=== PATIENT | male | born 2000 ===

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

== ENCOUNTER 2021-10-13 11:13 | Emergency (ER) | payer OTHER ==
[~2021-10-13] VITALS: Ht 170.2 cm; Wt 103.9 kg
--- OUTSIDE RECORDS SUMMARY | 2021-10-13 11:26 | XMS ---
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 E.Lupe VISIT COUNT (12 MO.) [facility] [address] [place] [address] TOTAL 2 NOTE: Visits indicate total known visits. ED/C VISIT TRACKING (12 MO.) 10/13/2021 11:[address] [facility] [place] TYPE: Emergency COMPLAINT: - DIZZY N/V 10/04/2021 11:45 [facility] [place] TYPE: Emergency DIAGNOSES: - Striking against or struck by other objects, subsequent encounter - Laceration without foreign body of scalp, subsequent encounter - Allergy status to penicillin - Concussion without loss of consciousness, initial encounter INPATIENT VISIT TRACKING (12 MO.) No inpatient visits to display in this time frame [email or web address]
== END 2021-10-13 14:24 | disposition home or self-care (01) ==
LOC: ED 11:13
DX: S06.0X0A Concussion without loss of consciousness, initial encounter (principal); H83.09 Labyrinthitis, unspecified ear; X58.XXXA Exposure to other specified factors, initial encounter; Z88.0 Allergy status to penicillin
CPT/HCPCS: 99283